=== PATIENT | female | born 1985 | race Caucasian/White ===

== ENCOUNTER 2018-04-18 21:05 | Emergency (ER) | payer OTHER ==
[2018-04-18 21:12] VITALS: BMI 26.5
[2018-04-18 21:13] VITALS: RESP 18
[2018-04-18] MEDS ORDERED: Sodium Chloride 0.9% 1,000 ML IV STA (21:49)
--- NOTE | 2018-04-18 22:10 | ED PDOC ---
Syncope/Near Syncope/Dizziness Time Seen by Provider: 04/18/18 21:18 Chief Complaint (Nursing): Dizziness/Lightheaded Chief Complaint (Provider): syncope History Per: Patient, Family History/Exam Limitations: no limitations Number Of Syncopal Episodes: 1 Activity At Onset Of Symptoms: Sitting Associated Symptoms Preceding Syncopal Episode: Lightheadedness Additional Complaint(s): 32 y/o female, approximately 22 weeks gestation, brought in by EMS for evaluation of syncopal episode prior to arrival. Patient states she has been on bed rest for one month due to placenta previa. States today she had an ultrasound appointment and was feeling intermittent lightheadedness throughout the day. Patient states tonight while sitting on the couch she felt weak, got cold sweats and hearing got muffled and then passed out; family there by her side to lower her down on couch. Patient also reports right posterior thigh pain since this morning; denies injury Patient denies fever, headache, dizziness, extremity numbness/weakness, vision changes, chest pain, shortness of breath, palpitations, abdominal pain, vaginal bleeding, urinary symptoms. Moisture Tester: Dr. Tran Past Medical History Reviewed: Historical Data, Nursing Documentation, Vital Signs Vital Signs: Last Vital Signs Temp 98.8 F 04/18/18 21:12 Pulse 89 04/18/18 21:12 Resp 18 04/18/18 21:12 BP 122/71 04/18/18 21:12 Pulse Ox 99 04/18/18 21:12 - Medical History PMH: Anemia Denies: Chronic Kidney Disease - Surgical History Surgical History: Appendectomy - Family History Family History: States: No Known Family Hx - Home Medications Home Medications: Ambulatory Orders Medication Instructions Recorded Homeopathic Substance [Iron Plus] 1 tab PO DAILY 12/17/13 - Allergies Allergies/Adverse Reactions: Allergies Allergy/AdvReac Type Severity Reaction Status Date / Time acetaminophen [From Percocet] Allergy ITCHING Verified 04/18/18 21:14 oxycodone [From Percocet] Allergy ITCHING Verified 04/18/18 21:14 Review of Systems ROS Statement: Except As Marked, All Systems Reviewed And Found Negative Musculoskeletal: Positive for: Leg Pain Physical Exam - Reviewed Nursing Documentation Reviewed: Yes Vital Signs Reviewed: Yes - Physical Exam Appears: Positive for: Well, Non-toxic, No Acute Distress Head Exam: Positive for: ATRAUMATIC, NORMAL INSPECTION, NORMOCEPHALIC Skin: Positive for: Normal Color Eye Exam: Positive for: Normal appearance, EOMI, PERRL ENT: Positive for: Normal ENT Inspection Cardiovascular/Chest: Positive for: Regular Rate, Rhythm Respiratory: Positive for: Normal Breath Sounds Gastrointestinal/Abdominal: Positive for: Normal Exam Back: Positive for: Normal Inspection Extremity: Positive for: Normal ROM. Negative for: Calf Tenderness, Swelling Neurologic/Psych: Positive for: Alert, Oriented (x3) - Laboratory Results Result Diagrams: 04/18/18 22:20 04/18/18 22:20 - ECG ECG: Positive for: Viewed By Me (reviewed by ED attending) ECG Rhythm: Positive for: Sinus Rhythm O2 Sat by Pulse Oximetry: 99 - Progress ED Course And Treament: labs, ekg, urine, IV fluids, venous duplex RLE EXAM: US Duplex Right Lower Extremity Veins EXAM DATE/TIME: 04/18/2018 9:49 PM CLINICAL HISTORY: 32 years old, female; Pain; Leg, upper; Right; Additional info: Pain posterior right thigh TECHNIQUE: Real-time ultrasound scan of the veins of the Right lower extremity with 2-D ferro scale, color Doppler flow and spectral waveform analysis. COMPARISON: No relevant prior studies available. FINDINGS: RIGHT: Right deep veins: Unremarkable. No DVT in the common femoral, femoral or popliteal veins. There is positive augmention. IMPRESSION: No evidence of deep venous thrombosis. On re-eval, patient states she is feeling better. Case discussed with Dr. Tran, who agrees with plan to discharge and f/up in office tm at scheduled appointment. Will send to OB-ED for monitoring Patient educated on findings, will f/up at scheduled appointment tomorrow Return precautions given Patient requires no further intervention in the ED and is stable for discharge at this time Disposition - Clinical Impression Clinical Impression: Syncope, Muscle strain of right thigh - Patient ED Disposition Is Patient to be Admitted: No Counseled Patient/Family Regarding: Studies Performed, Diagnosis, Need For Followup - Disposition Disposition: Routine/Home Disposition Time: 00:36 Condition: IMPROVED Instructions: Muscle Strain, Syncope (Fainting) Forms: [email or web address] (French)
[2018-04-18 22:24] LABS: BASO % 0.2 % (0.0-2.0); EOS # 0.1 K/uL (0.0-0.7); HEMOGLOBIN 10.3 g/dL (12.0-16.0); LYMPH # 1.3 K/uL (1.0-4.3); LYMPH % 11.6 % (20.0-40.0); MEAN CELL VOLUME 85.1 fl (81.0-99.0); MEAN CORPUSCULAR HEMOGLOBIN 28.9 pg (27.0-31.0); MEAN PLATELET VOLUME 7.8 fl (7.2-11.7); MONO % 8.9 % (0.0-10.0); NEUT # 8.5 K/uL (1.8-7.0); NEUT % 78.3 % (50.0-75.0); NRBC % 0.1 % (0.0-0.0); RBC 3.56 Mil/uL (3.80-5.20); RED CELL DISTRIBUTION WIDTH 14.6 % (11.5-14.5); WHITE BLOOD COUNT 10.8 K/uL (4.8-10.8)
[2018-04-18 22:43] LABS: SQUAMOUS EPITHIAL 1 /hpf (0-5); URINE AMORPHOUS SEDIMENT OCC /ul (<OCC); URINE BACTERIA OCC (<OCC); URINE BILIRUBIN NEGATIVE (NEGATIVE); URINE BLOOD NEGATIVE (NEGATIVE); URINE CLARITY CLOUDY (Clear); URINE COLOR YELLOW (YELLOW); URINE GLUCOSE (UA) NEG (Normal); URINE LEUKOCYTE ESTERASE NEG Leu/uL (Negative); URINE PROTEIN NEGATIVE (NEGATIVE); URINE UROBILINOGEN 0.2-1.0 mg/dL (0.2-1.0)
[2018-04-18 22:45] LABS: ALBUMIN 3.3 g/dL (3.5-5.0); ALT/SGPT 57 U/L (9-52); AST/SGOT 42 U/L (14-36); BLOOD UREA NITROGEN 8 mg/dl (7-17); CALCIUM 9.3 mg/dL (8.4-10.2); GFR NON-AFRICAN AMERICAN > 60
[2018-04-19 00:57] VITALS: BP 106/64; PULSE 80; TEMP 98.1; O2SAT 97
--- NOTE | 2018-04-19 06:35 | CARD ---
APPROVED REPORT Date of service: 04/18/2018 EKG Measurement Heart [id number] ID [id number] <Conclusion> Normal sinus rhythm Normal ECG
--- NOTE | 2018-04-19 07:59 | OBHP ---
Datetime: 04/19/2018 02:11 IP Adm Impression: , intrauterine ; No Active Labor IP Chief Complaint Other: Syncopal episode IP Admit Plan: Observation/Evaluation Admit Comment, IP Provider: 32 y/o female at 23.1 wk GA c/o of nausea and dizziness that beg an yesterday morning after showering, and worsened throughout the day. She reports losing consciousne ss while seated, which was observed by her boyfriend. She states she did not hit her head. She had a similar episode 1.5 months ago, but has not followed up with her doctor about it. She states she has been on bed rest for 1.5 months as she has placenta previa. She denies vaginal bleeding or any curren t symptoms. PNC: Dr. Dick Pmhx: none OBhx: , placenta previa Past surgical hx: appendectomy and Fam hx: none Social hx: denies current etoh, tobacco, recreational drug use Home meds: vitamins Allergies: Percocet GEN: laying in bed comfortably, not in acute distress HEENT: atraumatic, normocephalic RESP: Clear to auscultation, normal breath sounds. CV: RRR, No murmurs. ABD: Soft, normal BS, no tenderness LE: Pedal Edema present, no calf tenderness Neuro: AAOx3 [place]: no contractions Assessment: 32 y/o f 23.1 intrauterine NST reactive Patient is stable Plan: Monitor FHR Monitor maternal BP Observe and reevaluate in the AM Case discussed w/ attending physician Christine Griffiths, [facility]. With PGY1, I saw and examined this patient...she was seen in ER and grace cao She will be seen by PMD later this morning. MAHNDO Pelvic Type - PN: Not Done Extremities - PN: Normal Abdomen - PN: Normal Back - PN: Normal Breast - PN: Not Done Lungs - PN: Normal Heart - PN: Normal Thyroid - PN: Normal Neurologic - PN: Normal HEENT - PN: Normal General - PN: Normal FHR - Baseline A Provider: 150 Contraction Comments Provider: none Gestation - Est Wks by US: 23.1 EGA AdmitDate IP: 23.1 Vital Signs Provider: Reviewed; Within Normal Limits IP Chief Complaint: Other NICHD Variability Prov Fetus A: Moderate 6-25bpm NICHD Accel Fetus A IP Provider: 15X15 FHR Category Provider Fetus A: Category I NICHD Decel Fetus A IP Provider: None Genitourinary Exam: Not Done DTRs - PN: Not Done
--- NOTE | 2018-04-19 09:40 | US ---
Date of service: 04/18/2018 PROCEDURE: Right lower extremity venous duplex Doppler. HISTORY: Pain posterior right thigh COMPARISON: None available. TECHNIQUE: Common femoral, superficial femoral, popliteal and posterior tibial veins were evaluated. Flow was assessed with color Doppler, compressibility, assessment of phasic flow and augmentation response. FINDINGS: COMMON FEMORAL VEIN: Unremarkable. SUPERFICIAL FEMORAL VEIN: Unremarkable. POPLITEAL VEIN: Unremarkable. POSTERIOR TIBIAL VEIN: Unremarkable. OTHER FINDINGS: None. IMPRESSION: No evidence of deep venous thrombosis in the right lower extremity. Micro
== END 2018-04-19 01:10 | disposition home or self-care (01) ==
LOC: H.ER 21:05 → H.EROB2 21:05
DX: O44.20 Partial placenta previa NOS or without hemorrhage, unspecified trimester (principal); O26.92 Pregnancy related conditions, unspecified, second trimester; R11.0 Nausea; R42 Dizziness and giddiness; Z3A.23 23 weeks gestation of pregnancy
CPT/HCPCS: 80053; 81003; 81025; 82948; 85025; 93005; 93971; 96360; 99284; J7030

== ENCOUNTER 2018-07-09 14:30 | Emergency (ER) | payer OTHER ==
[2018-07-09] MEDS ORDERED: Lactated Ringer's 1,000 ML IV SCH (15:00)
[2018-07-09 15:04] VITALS: BMI 31.6
[2018-07-09] MEDS ORDERED: Betamethasone Soluspan 30 mg/5mL Inj Susp IM ONE (15:05)
--- NOTE | 2018-07-09 16:42 | OBDCSUM ---
Datetime: 07/09/2018 16:08 Discharged to, Provider: Home Follow up at, Provider: Tonya Disch Instr Activity: Normal activity Disch Instr Diet: Regular Discharge Time: 07/09/2018 16:08 Follow up in weeks, Provider: 07/10/18 Disch Referrals: None Discharge Diagnosis Prov Other: r/o SROM
--- NOTE | 2018-07-09 16:42 | OBHP ---
Datetime: 07/09/2018 16:37 IP Adm Impression: , intrauterine IP Chief Complaint Other: decreased PAMELA IP Admit Plan: Observation/Evaluation; Discharge home Admit Comment, IP Provider: Patient is a @ 34.5 wks with low PAMELA at U/S unit today, sent by [facility] for evaluation of ROM. Patient denies leaking, VB, +FM, no ctxns. Patient is a previous , no other issues, no medical problems.Pt evaluated with sterile speculum, no pooling, nega tive nitrazine. Cervix looks to be closed. FHR= 145 mod annie, +accels, no decels. No contractions. Pat ient ruled out for rupture, reactive NST, on schedule for BPP tomorrow in office. Betamethasone given and 1000cc of LR. All questions answered, pt discharge home for follow up in office tomorrow Pelvic Type - PN: Adequate Extremities - PN: Normal Abdomen - PN: Normal Back - PN: Normal Breast - PN: Normal Lungs - PN: Normal Heart - PN: Normal Thyroid - PN: Normal Neurologic - PN: Normal HEENT - PN: Normal General - PN: Normal FHR - Baseline A Provider: 140 Membranes, Provider: Intact Contraction Comments Provider: none Vital Signs Provider: Reviewed; Within Normal Limits NICHD Variability Prov Fetus A: Moderate 6-25bpm NICHD Accel Fetus A IP Provider: 15X15 NICHD Decel Fetus A IP Provider: None Dilatation, Provider: closed Effacement, Provider: thick Station, Provider: high Genitourinary Exam: Normal DTRs - PN: Normal Datetime: 04/19/2018 02:11 EGA AdmitDate IP: 23.1
[2018-07-09 20:25] VITALS: BP 101/47; PULSE 77
== END 2018-07-09 16:23 | disposition home or self-care (01) ==
LOC: H.EROB2 14:30
DX: O28.9 Unspecified abnormal findings on antenatal screening of mother (principal); Z87.59 Personal history of other complications of pregnancy, childbirth and the puerperium; Z23 Encounter for immunization; Z3A.34 34 weeks gestation of pregnancy
CPT/HCPCS: 82948; 96372; 99283; J0702; J7120

== ENCOUNTER 2018-07-10 13:19 | Emergency (ER) | payer OTHER ==
[2018-07-09 15:04] VITALS: BMI 31.6
[2018-07-10] MEDS ORDERED: Lactated Ringer's 1,000 ML IV SCH (13:45)
[2018-07-10] MEDS ORDERED: Betamethasone Soluspan 30 mg/5mL Inj Susp IM ONE (14:00)
[2018-07-10 20:33] VITALS: BP 105/53; PULSE 82; RESP 16; TEMP 98; O2SAT 100
--- NOTE | 2018-07-16 15:26 | OBHP ---
Datetime: 07/10/2018 15:30 IP Adm Impression: , intrauterine ; No Active Labor; Intact Membranes IP Admit Plan: Discharge home Admit Comment, IP Provider: LATE ENTRY FOR JUL 10 Pt was seen earlier by Dr Hogue OB Fellow who contacted Dr Dick PMD - gave orders for steroid s and for her to be dishcarged home. I was called as the patinet was leaving. 33yo IUP at 34w5d came fo repeat steroid dosing. She rec'd one yesterday for low PAMELA. Adrian eduled to repeat sono this week andwith PMD this week. No SROM. No VB. +FM care: Dr Abraham - IRINAA POBGYNH: C/S x 1 PMH denies PSH: C/S / appendectomy Allergy oxycodone/Acetamenophen A: IUP at 34w low PAMELA PLAN: given steroid dose; labor instructionsl f/u as scheduled IP Hx Assessment: The History has been Reviewed and is Current EGA AdmitDate IP: 34.5 IP Chief Complaint: Other FHR Category Provider Fetus A: Category I NICHD Decel Fetus A IP Provider: None
== END 2018-07-10 15:45 | disposition home or self-care (01) ==
LOC: H.EROB2 13:19
DX: O41.8X30 Other specified disorders of amniotic fluid and membranes, third trimester, not applicable or unspecified (principal); Z3A.34 34 weeks gestation of pregnancy; Z23 Encounter for immunization
CPT/HCPCS: 96372; 99283; J0702; J7120

== ENCOUNTER 2018-07-16 15:15 | Emergency (ER) | payer OTHER ==
[2018-07-16 16:18] VITALS: BMI 31.1
[2018-07-16] MEDS ORDERED: Lactated Ringer's 1,000 ML IV SCH (16:30)
--- NOTE | 2018-07-16 17:36 | OBDCSUM ---
Datetime: 07/16/2018 17:33 Discharged to, Provider: Home Follow up at, Provider: JORDEN u/s Disch Instr Activity: Normal activity Disch Instr Diet: Regular Discharge Instructions, Provider: Routine instructions given Discharge Time: 07/16/2018 17:34 Follow up in weeks, Provider: tomorrow Discharge Diagnosis Prov Other: Reduced PAMELA
--- NOTE | 2018-07-16 19:37 | OBHP ---
Datetime: 07/16/2018 17:15 IP Adm Impression: , intrauterine IP Chief Complaint Other: Reduced PAMELA IP Admit Plan: Observation/Evaluation; Discharge home Admit Comment, IP Provider: 33 yo at 25+4 wks w/ EDC 08/16/2017 sent from [facility] u/s for reduce d PAMELA 6.1 for NST and 1 liter IVF. Pt denies LOF, VB and ctxns, reports FM. Pt receives her prenata care w/ Dr. Dick. This is complicated by "silent seizures" and GDM on metformin. PMH: "Silent seizures" w/ this - seeing a neurologist PSH:Open appendectomy 2003 section 2008 Meds: Levetiracetam 500 mg BID Metformin 500 BID All: percocet-> jitteriness and bites buccal mucosa in sleep Fam hx: MGM - colon cancer PGF heart dz and DM Soc hx: Pt denies tobacco, alcohol, adn illicit drug use Ob hx: 2009 c/s female, NRFHT 2004 [employer]PO [employer]up [employer] hx: 12 x monthly periods x 4-5 days Pt denies STDs, reports abn paps, cryo done around 2004 PE: AFVSS Gen'l: Pt appears comfortable sitting up in bed Heart: RRR Chest: Lungs CTA b/l Abd: soft, NT, gravid Ext: NT, no edema VE: Deferred EFM: as above [place]: as above A/P: 33 yo at 35+4 wks sent from [facility] for rduced PAMELA for NST and a liter IVF. FHT reactive. Pt to have f/u u/s w/ M tomorrrow. Pt given precautions. (ES) Extremities - PN: Normal Abdomen - PN: Normal Back - PN: Normal Lungs - PN: Normal Heart - PN: Normal Thyroid - PN: Not Done Neurologic - PN: Normal General - PN: Normal FHR - Baseline A Provider: 140's Membranes, Provider: Intact Contraction Comments Provider: None EGA AdmitDate IP: 35.4 Vital Signs Provider: Reviewed IP Chief Complaint: Other NICHD Accel Fetus A IP Provider: 15X15 FHR Category Provider Fetus A: Category I NICHD Decel Fetus A IP Provider: None Genitourinary Exam: Not Done
[2018-07-17 11:43] VITALS: BP 111/59; PULSE 81; TEMP 98.4
== END 2018-07-16 18:00 | disposition home or self-care (01) ==
LOC: H.EROB2 15:15
DX: O41.8X3 Other specified disorders of amniotic fluid and membranes, third trimester (principal); Z3A.25 25 weeks gestation of pregnancy
CPT/HCPCS: 99283; J7120

== ENCOUNTER 2018-07-17 11:55 | Inpatient (IN) | payer OTHER ==
[2018-07-16 16:18] VITALS: BMI 31.1
[2018-07-17] MEDS: Lactated Ringer's 2,000 ML IV ONE ×2 (12:30→13:30)
[2018-07-17] MEDS ORDERED: Lactated Ringer's 1,000 ML IV ONE (12:46)
[2018-07-17] MEDS ORDERED: cefOXitin Sodium 1 GM in Sodium Chloride 0.9% 100 ML IVPB ONE (12:46)
[2018-07-17] MEDS ORDERED: Oxytocin 30 UNIT 30 UNITS/500 ML BAG IV ONE (12:50)
[2018-07-17] MEDS ORDERED: OXYTOCIN/0.9 % NS 20 UNIT/1,000 ML BAG IV SCH (13:00)
[2018-07-17] MEDS ORDERED: Lactated Ringer's 1,000 ML IV SCH (13:00)
[2018-07-17] MEDS ORDERED: cefOXitin IV 1 gm in Dextrose 1 GM/50 ML BAG IVPB ONE (13:00)
[2018-07-17 13:29] LABS: BASO # 0.1 K/uL (0.0-0.2); BASO % 0.9 % (0.0-2.0); EOS # 0.1 K/uL (0.0-0.7); EOS % 0.7 % (0.0-4.0); HEMOGLOBIN 12.1 g/dL (12.0-16.0); LYMPH # 1.3 K/uL (1.0-4.3); MEAN CELL VOLUME 85.6 fl (81.0-99.0); MEAN CORPUSCULAR HEMOGLOBIN 27.7 pg (27.0-31.0); MEAN CORPUSCULAR HGB CONC 32.4 g/dL (33.0-37.0); MONO # 0.7 K/uL (0.0-0.8); MONO % 9.2 % (0.0-10.0); NEUT # 5.6 K/uL (1.8-7.0); NEUT % 72.2 % (50.0-75.0); RBC 4.38 Mil/uL (3.80-5.20); WHITE BLOOD COUNT 7.7 K/uL (4.8-10.8)
[2018-07-17] MEDS ORDERED: Dextrose 50% SYRINGE Inj (50 ml) IVP ONE (18:28)
[2018-07-17] MEDS ORDERED: Phenylephrine 10 mg/ml Inj ONE (19:14)
[2018-07-17] MEDS ORDERED: ePHEDrine 50 mg/ml Inj ONE (19:14)
[2018-07-17] MEDS ORDERED: Morphine 1 mg/ml preservative-free Inj(Duramorph) ONE (19:14)
[2018-07-17] MEDS ORDERED: Midazolam 2 MG/2 ML VIAL ONE (20:33)
[2018-07-17] MEDS ORDERED: DiphenhydrAMINE 50 mg/ml Inj IVP PRN (21:16)
[2018-07-17] MEDS ORDERED: Oxycodone/Acetaminophen 5/325 mg Tab PO PRN ×3 (21:16→21:42)
--- NOTE | 2018-07-17 21:30 | OBADHP ---
Datetime: 07/17/2018 21:18 IP Adm Impression Other: oligohydramnios Admit Comment, IP Provider: iup 35+ weeks with oligo and gestation al dm controlled admitted for del akbar by repeat section Pelvic Type - PN: Adequate Extremities - PN: Normal Abdomen - PN: Normal Back - PN: Normal Breast - PN: Normal Lungs - PN: Normal Heart - PN: Normal Thyroid - PN: Normal Neurologic - PN: Normal HEENT - PN: Normal General - PN: Normal Presentation-Admit: Vertex FHR - Baseline A Provider: 130 Membranes, Provider: Ruptured Contraction Comments Provider: irregular Gestation - Est Wks by US: 35+ Vital Signs Provider: Reviewed; Within Normal Limits NICHD Variability Prov Fetus A: Moderate 6-25bpm NICHD Accel Fetus A IP Provider: 10X10 FHR Category Provider Fetus A: Category I NICHD Decel Fetus A IP Provider: None Dilatation, Provider: closed Genitourinary Exam: Normal DTRs - PN: Normal IP Adm Impression: , intrauterine IP Admit Plan: Admit to unit; Initiate Section protocol Datetime: 07/17/2018 12:24 Comments, ACOG Physical Exam: PT is not in acute distress heart ss1/s2 heard no extra heart sound lung clear abd BS+ non tender Datetime: 07/16/2018 17:15 IP Chief Complaint Other: Reduced PAMELA IP Chief Complaint: Other EGA AdmitDate IP: 35.4 Datetime: 07/10/2018 15:30 IP Hx Assessment: The History has been Reviewed and is Current Datetime: 07/09/2018 16:37 Effacement, Provider: thick Station, Provider: high
--- NOTE | 2018-07-17 21:35 | OBDS ---
DELIVERY PERSONNEL Delivery Doctor: Levy Dick MD Shake Splitter: Jesusita Canales RN Anesthesiologist: Wilmar Fuchs MD Resident: Dr. Eddy MATERNAL INFORMATION Delivery Anesthesia: Spinal Medications in Delivery: Pitocin Maternal Complications: None Provider Comments: delivery of live baby girl 9/9 clear fluid 1 nuchal cord LABOR SUMMARY EDC: 08/16/2018 00:00 No. Babies in Womb: 1 Attempted: No Labor Anesthesia: None LABOR INFORMATION Reason for Induction: Not Applicable Oxytocin: N/A Group B Beta Strep: Done, Result Unknown Antibiotics # of Doses: 1 Antibiotics Time of Last Dose: 1930 Steroids Given: None Reason Steroids Not Administered: Not Applicable MEMBRANES Membranes Rupture Method: Artificial Rupture of Membranes: 07/17/2018 20:13 Length of Rupture (hrs): 0.02 Amniotic Fluid Color: Clear Amniotic Fluid Amount: Moderate STAGES OF LABOR Stage 3 hrs: 0 Stage 3 min: 1 VAGINAL DELIVERY Episiotomy: None CSECTION DELIVERY Primary Indication: Repeat Secondary Indication: Other Other Secondary Indication: Oligo, GDM CSection Urgency: Non Elective CSection Incidence: Repeat Labor: N/A Elective: Nonelective CSection Incision: Lower Uterine Transverse BABY A INFORMATION Delivery Date/Time: 07/17/2018 20:14 Method of Delivery: Born in Route : No : N/A Forceps: N/A Vacuum Extraction: N/A Shoulder Dystocia : No SHOULDER DYSTOCIA BABY A Delivery Date/Time: 07/17/2018 20:14 PRESENTATION/POSITION BABY A Presentation: Cephalic Cephalic Presentation: Vertex Breech Presentation: N/A PLACENTA INFORMATION BABY A Placenta Delivery Time : 07/17/2018 20:15 Placenta Method of Delivery: Manual Removal Placenta Status: Delivered SCORES BABY A Heart Rate 1 min: >100 bpm Resp Effort 1 min: Good Cry Reflex Irritability 1 min: Cough or Sneeze or Pulls Away Muscle Tone 1 min: Active Motion Color 1 min: Body Nikolai, Extremities Blue Resuscitation Effort 1 min: Tactile Stimulation SCORE 1 MIN: 9 Heart Rate 5 min: >100 bpm Resp Effort 5 min: Good Cry Reflex Irritability 5 min: Cough or Sneeze or Pulls Away Muscle Tone 5 min: Active Motion Color 5 min: Body Nikolai, Extremities Blue Resuscitation Effort 5 min: N/A SCORE 5 MIN: 9 INFANT INFORMATION BABY A Gestational Age at Delivery: 35.5 Gestational Status: Outcome : Liveborn Condition : Stable Infant Sex: Female IDENTIFICATION/MEDS BABY A ID Band Number: [id number] ID Band Location: Left Leg; Left Arm WEIGHT/LENGTH BABY A Birthweight (gms): 2650 Infant Weight (lb): 5 Infant Weight (oz): 13 CORD INFORMATION BABY A No. Cord Vessels: 3 Nuchal Cord : Around Neck x1, Loose Cord Blood Taken: Yes Suction: Mouth; Nose ASSESSMENT BABY A Complications: None Physical Findings at Delivery: Within Normal Limits Respirations: Appears Normal Malt House Kiln Operator/ALS Called : No Care By: Denys Milner RN Transferred To: Remains with Mother
[2018-07-18] MEDS ORDERED: DiphenhydrAMINE 50 mg/ml Inj IVP PRN (00:45)
[2018-07-18] MEDS: Lactated Ringer's 1,000 ML IV SCH ×2 (06:16→09:37)
[2018-07-18 06:29] LABS: HEMOGLOBIN 10.4 g/dL (12.0-16.0); MEAN CELL VOLUME 85.4 fl (81.0-99.0); MEAN CORPUSCULAR HEMOGLOBIN 28.2 pg (27.0-31.0); RBC 3.69 Mil/uL (3.80-5.20); RED CELL DISTRIBUTION WIDTH 18.8 % (11.5-14.5)
[2018-07-18] MEDS ORDERED: Multivitamin With Minerals Tab PO SCH (09:00)
[2018-07-18] MEDS: Multivitamin With Minerals Tab PO SCH (09:36)
--- NOTE | 2018-07-18 18:24 | OBPPN ---
Datetime: 07/18/2018 18:19 PP Pain Prov: Within normal limits PP Nausea Prov: Denies PP Flatus Prov: Yes PP BM Prov: No PP Breasts Prov: Normal PP Heart Prov: Normal PP Lungs Prov: Normal PP Abdomen/Uterus Prov: Normal PP Lochia Prov: Normal PP Vulva/Perineum Prov: Normal PP CVA Tenderness Prov: Normal PP Extremities Prov: Normal PP C/S Incision Prov: Normal PP Impression Prov: Normal progression PP Plan Prov: Continue present management PP Progress Note Prov: stable pod1 no complaints dc dressing oob with assistance may shower advance diet as tolerated IP PP Procedures: None Vital Signs Provider PP: Reviewed; Within Normal Limits
--- NOTE | 2018-07-19 08:44 | OBPPN ---
Datetime: 07/19/2018 08:40 PP Pain Prov: Within normal limits PP Nausea Prov: Denies PP Flatus Prov: Yes PP BM Prov: No PP Breasts Prov: Normal PP Heart Prov: Normal PP Lungs Prov: Normal PP Abdomen/Uterus Prov: Normal PP Lochia Prov: Normal PP Vulva/Perineum Prov: Normal PP CVA Tenderness Prov: Normal PP Extremities Prov: Normal PP C/S Incision Prov: Normal PP Impression Prov: Normal progression PP Plan Prov: Continue present management PP Progress Note Prov: stable pod2 continue present care IP PP Procedures: None
[2018-07-19] MEDS ORDERED: Simethicone 80 mg Chewtab PO PRN (08:47)
[2018-07-19] MEDS: Multivitamin With Minerals Tab PO SCH (08:57)
[2018-07-19] MEDS: Simethicone 80 mg Chewtab PO PRN (21:48)
[2018-07-20] MEDS: Simethicone 80 mg Chewtab PO PRN (08:22)
[2018-07-20] MEDS: Multivitamin With Minerals Tab PO SCH (08:22)
--- NOTE | 2018-07-20 12:00 | OBDCSUM ---
Datetime: 07/20/2018 11:55 Discharged to, Provider: Home Follow up at, Provider: Kalie Disch Instr Activity: Bedrest; May be up to bathroom; May be up for meals; May Shower Disch Instr Diet: Regular Discharge Instructions, Provider: Specific instructions as noted Discharge Diagnosis, Provider: Term Delivered Discharge Time: 07/20/2018 11:56 Follow up in weeks, Provider: 1week in office Disch Referrals: None Disch Activity Restrictions: No exercising; No lifting; No driving; Minimize walking; Minimize stair -climbing; No sexual activity; Nothing in vagina - [place], tampons, douche Contraception after Delivery: Undecided
[2018-07-20 22:10] VITALS: BP 115/65; PULSE 71; RESP 20; TEMP 98; O2SAT 99
== END 2018-07-20 14:16 | disposition home or self-care (01) | DRG 787 ==
LOC: H.EROB2 11:55 → H.L&D 12:48 → H.OB/GYN 07-18
PROVIDERS: ADMIT Specialist; ATTEND Specialist
PROC: 10D00Z1 Extraction of Products of Conception, Low, Open Approach (ICD-10-PCS; principal; 2018-07-17)
PROC: 4A1HXCZ Monitoring of Products of Conception, Cardiac Rate, External Approach (ICD-10-PCS; 2018-07-17)
DX: O34.211 Maternal care for low transverse scar from previous cesarean delivery (principal); O41.03X0 Oligohydramnios, third trimester, not applicable or unspecified; N85.8 Other specified noninflammatory disorders of uterus; Z3A.35 35 weeks gestation of pregnancy; Z37.0 Single live birth; O24.420 Gestational diabetes mellitus in childbirth, diet controlled; O69.81X0 Labor and delivery complicated by cord around neck, without compression, not applicable or unspecified